=== PATIENT | male | born 1935 | race Asian ===

== ENCOUNTER 2023-06-11 16:31 | Inpatient (IN) | payer MEDICARE, OTHER ==
[~2023-06-11] VITALS: Ht 167.6 cm; Wt 75.7 kg
[2023-06-11 18:55] LABS: BASOPHILS % (AUTO) 0.6 % (0.0-2.0); EOSINOPHILS # (AUTO) 0.4 K/uL (0.0-0.7); EOSINOPHILS % (AUTO) 5.1 % (0.0-6.0); HEMATOCRIT 31 % (39-51); HEMOGLOBIN 10.3 g/dL (13.5-17.5); LYMPHOCYTES # (AUTO) 0.5 K/uL (0.8-4.8); LYMPHOCYTES % (AUTO) 6.3 % (20.0-44.0); MEAN CORPUSCULAR HEMOGLOBIN 34 PG (26.0-33.0); MEAN CORPUSCULAR HGB CONC 33 g/dl (31.0-36.0); MEAN CORPUSCULAR VOLUME 101 fL (80-96); MONOCYTES # (AUTO) 0.4 K/uL (0.1-1.30); MONOCYTES % (AUTO) 5.2 % (2.0-12.0); NEUTROPHILS # (AUTO) 6.3 K/uL (1.8-8.9); NEUTROPHILS % (AUTO) 82.8 % (43.0-81.0); PLATELET COUNT (AUTO) 73 K/uL (150-450); RED BLOOD CELL COUNT(AUTO) 3.04 MIL/uL (4.5-6.0); RED CELL DISTRIBUTION WIDTH 16.4 % (11.5-15.0); WHITE BLOOD COUNT (AUTO) 7.6 K/uL (4.3-11.0)
[2023-06-11 19:36] LABS: CALCIUM, SERUM 8.2 mg/dL (8.5-10.1); CARBON DIOXIDE 26 mmol/L (21-32); CHLORIDE 92 mmol/L (98-107); GLUCOSE 100 mg/dL (74-106); POTASSIUM 4.1 mmol/L (3.5-5.1); SODIUM SERUM 131 mmol/L (136-145); UREA NITROGEN, BLOOD 67 mg/dL (7-18)
[2023-06-11 19:37] LABS: EOSINOPHILS % (MANUAL) 2 % (0-4); LYMPHOCYTES % (MANUAL) 10 % (16-48); MONOCYTES % (MANUAL) 6 % (0-11.0); NEUTROPHILS % (MANUAL) 82 (42-76)
[2023-06-11 19:38] LABS: ANISOCYTOSIS 1+; PLATELET ESTIMATE DECREASED
[2023-06-11 19:42] LABS: ALANINE AMINOTRANSFERASE 48 U/L (12-78); ALBUMIN 2.4 g/dL (3.4-5.0); ALKALINE PHOSPHATASE 148 U/L (46-116); ASPARTATE AMINOTRANSFERASE 37 U/L (15-37); BILIRUBIN,DIRECT 1.2 mg/dL (0.0-0.2); BILIRUBIN,TOTAL 1.8 mg/dL (0.2-1.0); TOTAL PROTEIN, SERUM 6.7 g/dL (6.4-8.2)
[2023-06-11 19:49] LABS: CREATININE 8.9 mg/dL (0.6-1.3)
[2023-06-11 20:00] VITALS: BP 98/54; TEMP 98.1; O2SAT 98
[2023-06-11 20:30] VITALS: BP 98/54; TEMP 98.1; O2SAT 98
[2023-06-11] MEDS ORDERED: ONDANSETRON HCL/PF 4 MG/2 ML VIAL IVP PRN (21:00)
[2023-06-11] MEDS ORDERED: ACETAMINOPHEN 325 MG TABLET PO PRN (21:00)
[2023-06-11] MEDS ORDERED: Z GUARD REMEDY 4 OZ OINT TP PRN (21:00)
[2023-06-11] MEDS ORDERED: MAG HYDROX/AL HYDROX/SIMETH 30 ML UDC PO PRN (21:00)
[2023-06-11] MEDS ORDERED: MAGNESIUM HYDROXIDE 30 ML UDC PO PRN (21:00)
[2023-06-11] MEDS ORDERED: ZOLPIDEM TARTRATE 5 MG TABLET PO PRN (21:00)
[2023-06-11 22:05] LABS: INR 1.14 (0.91-1.10); PARTIAL THROMBOPLASTIN TIME 42.8 SEC (24.3-34.3)
[2023-06-11] MEDS ORDERED: PIOG30TA10 PO (23:07)
[2023-06-11] MEDS ORDERED: CARV12.52 PO (23:07)
[2023-06-11] MEDS ORDERED: LINA5TAB PO (23:07)
[2023-06-11] MEDS ORDERED: ATOR20TA PO (23:07)
[2023-06-11] MEDS ORDERED: CALC500T53 PO (23:07)
[2023-06-11] MEDS ORDERED: OMEP40CA21 PO (23:07)
[2023-06-11] MEDS ORDERED: APIX2.5T PO (23:07)
[2023-06-12 08:00] VITALS: BP_SYST 106; BP_SYST 98; BP_DIAS 61; BP_DIAS 64; TEMP 98.2; O2SAT 100; O2SAT 98
[2023-06-12] MEDS: PANTOPRAZOLE 40 MG VIAL IV SCH (09:08)
[2023-06-12 10:27] LABS: BASOPHILS % (AUTO) 0.3 % (0.0-2.0); EOSINOPHILS # (AUTO) 0.1 K/uL (0.0-0.7); EOSINOPHILS % (AUTO) 1.3 % (0.0-6.0); HEMATOCRIT 31 % (39-51); HEMOGLOBIN 10.3 g/dL (13.5-17.5); LYMPHOCYTES # (AUTO) 0.8 K/uL (0.8-4.8); LYMPHOCYTES % (AUTO) 14.4 % (20.0-44.0); MEAN CORPUSCULAR HEMOGLOBIN 34 PG (26.0-33.0); MEAN CORPUSCULAR HGB CONC 33 g/dl (31.0-36.0); MEAN CORPUSCULAR VOLUME 101 fL (80-96); MONOCYTES # (AUTO) 0.7 K/uL (0.1-1.30); MONOCYTES % (AUTO) 12.1 % (2.0-12.0); NEUTROPHILS # (AUTO) 4.1 K/uL (1.8-8.9); NEUTROPHILS % (AUTO) 71.9 % (43.0-81.0); PLATELET COUNT (AUTO) 66 K/uL (150-450); RED BLOOD CELL COUNT(AUTO) 3.07 MIL/uL (4.5-6.0); RED CELL DISTRIBUTION WIDTH 16.4 % (11.5-15.0); WHITE BLOOD COUNT (AUTO) 5.7 K/uL (4.3-11.0)
[2023-06-12 10:40] LABS: CALCIUM, SERUM 8.1 mg/dL (8.5-10.1); CARBON DIOXIDE 24 mmol/L (21-32); CHLORIDE 94 mmol/L (98-107); GLUCOSE 112 mg/dL (74-106); MAGNESIUM 2.2 mg/dL (1.8-2.4); PHOSPHORUS 3.7 mg/dL (2.5-4.9); POTASSIUM 4.2 mmol/L (3.5-5.1); SODIUM SERUM 130 mmol/L (136-145)
[2023-06-12 10:44] LABS: CHOLESTEROL 97 mg/dL (<200); HDL CHOLESTEROL 19 mg/dL (40-60); LDL 38 mg/dL (0-99); TRIGLYCERIDES 140 mg/dL (30-150)
[2023-06-12 10:45] LABS: CREATININE 9.5 mg/dL (0.6-1.3); UREA NITROGEN, BLOOD 80 mg/dL (7-18)
[2023-06-12] MEDS ORDERED: IOHEXOL 0 ML IV ONE (13:02)
[2023-06-12] MEDS ORDERED: ANESTHESIA TRAY IN PYXIS 1 EA TRAY MC ONE (13:02)
[2023-06-12] MEDS ORDERED: HEPARIN SODIUM, PORCINE 1,000 UNIT/ML VIAL ONE (13:03)
[2023-06-12] MEDS ORDERED: LIDOCAINE HCL/MPF 1% 30 ML VIAL IJ ONE (13:03)
[2023-06-12] MEDS ORDERED: VASOPRESSIN INJ 20 UNIT/ML VIAL ONE (13:13)
[2023-06-12] MEDS ORDERED: NOREPINEPHRINE 4 MG/4 ML AMPUL IV ONE (13:13)
[2023-06-12] MEDS ORDERED: FENTANYL PF 100MCG/2ML AMPUL ONE (13:13)
[2023-06-12] MEDS ORDERED: FAMOTIDINE/PF INJ 20 MG/2 ML VIAL IV ONE (13:14)
[2023-06-12] MEDS ORDERED: SEVOFLURANE 250 ML BOTTLE IH ONE (13:43)
[2023-06-12 15:04] LABS: ANISOCYTOSIS 1+; EOSINOPHILS % (MANUAL) 2 % (0-4); LYMPHOCYTES % (MANUAL) 16 % (16-48); MONOCYTES % (MANUAL) 8 % (0-11.0); NEUTROPHILS % (MANUAL) 74 (42-76); PLATELET ESTIMATE DECREASED
[2023-06-12] MEDS ORDERED: CELLULOSE,OXIDIZED 1 EACH EACH MC ONE (15:04)
[2023-06-12] MEDS ORDERED: ROPIVACAINE HCL 0.5% 5 MG/ML 30ML VIAL ONE (15:35)
[2023-06-12 20:00] VITALS: BP 82/41; TEMP 97.3; O2SAT 100
[2023-06-12] MEDS ORDERED: ALBUMIN 25% 25 GM in PREMIX 1 EA IV PRN ×2 (20:00→20:30)
[2023-06-12] MEDS: IV NS 0.9% 250 ML IV ONE ×2 (20:17→22:39)
[2023-06-12] MEDS: ALBUMIN 25% 25 GM in PREMIX 1 EA IV ONE (20:31)
[2023-06-12] MEDS ORDERED: IV NS 0.9% 1,000 ML BAG IV ONE (21:30)
[2023-06-13] VITALS (7 sets, daily range): BP systolic 78–100; BP diastolic 43–56; TEMP 97.3–98.4; O2SAT 95–100
[2023-06-13 06:43] LABS: BASOPHILS % (AUTO) 0.4 % (0.0-2.0); EOSINOPHILS # (AUTO) 0.1 K/uL (0.0-0.7); EOSINOPHILS % (AUTO) 1.7 % (0.0-6.0); HEMATOCRIT 25 % (39-51); HEMOGLOBIN 8.4 g/dL (13.5-17.5); LYMPHOCYTES # (AUTO) 0.7 K/uL (0.8-4.8); LYMPHOCYTES % (AUTO) 16.7 % (20.0-44.0); MEAN CORPUSCULAR HEMOGLOBIN 34 PG (26.0-33.0); MEAN CORPUSCULAR HGB CONC 33 g/dl (31.0-36.0); MEAN CORPUSCULAR VOLUME 101 fL (80-96); MONOCYTES # (AUTO) 0.5 K/uL (0.1-1.30); MONOCYTES % (AUTO) 12.9 % (2.0-12.0); NEUTROPHILS # (AUTO) 2.8 K/uL (1.8-8.9); NEUTROPHILS % (AUTO) 68.3 % (43.0-81.0); PLATELET COUNT (AUTO) 55 K/uL (150-450); RED BLOOD CELL COUNT(AUTO) 2.52 MIL/uL (4.5-6.0); RED CELL DISTRIBUTION WIDTH 16.4 % (11.5-15.0); WHITE BLOOD COUNT (AUTO) 4.1 K/uL (4.3-11.0)
[2023-06-13 07:20] LABS: ALANINE AMINOTRANSFERASE 23 U/L (12-78); ALBUMIN 2.2 g/dL (3.4-5.0); ALKALINE PHOSPHATASE 108 U/L (46-116); ASPARTATE AMINOTRANSFERASE 15 U/L (15-37); BILIRUBIN,TOTAL 1.3 mg/dL (0.2-1.0); CALCIUM, SERUM 7.7 mg/dL (8.5-10.1); CARBON DIOXIDE 25 mmol/L (21-32); CHLORIDE 95 mmol/L (98-107); GLUCOSE 108 mg/dL (74-106); MAGNESIUM 2.1 mg/dL (1.8-2.4); PHOSPHORUS 4.8 mg/dL (2.5-4.9); POTASSIUM 4.9 mmol/L (3.5-5.1); SODIUM SERUM 132 mmol/L (136-145); TOTAL PROTEIN, SERUM 5.8 g/dL (6.4-8.2)
[2023-06-13 07:58] LABS: CREATININE 10.1 mg/dL (0.6-1.3); UREA NITROGEN, BLOOD 81 mg/dL (7-18)
[2023-06-13 11:03] LABS: ANISOCYTOSIS 1+; BAND % (MANUAL) 3 % (0.0-5.0); BASOPHILS % (MANUAL) 0 % (0.0-2.0); EOSINOPHILS % (MANUAL) 2 % (0-4); LYMPHOCYTES % (MANUAL) 14 % (16-48); MONOCYTES % (MANUAL) 10 % (0-11.0); NEUTROPHILS % (MANUAL) 71 (42-76); OVALOCYTES 1+; PLATELET ESTIMATE DECREASED
[2023-06-13] MEDS ORDERED: ALBUMIN 25% 25 GM in PREMIX 1 EA IV PRN (13:00)
[2023-06-13] MEDS: MIDODRINE HCL (5MG) 5 MG TABLET PO PRN (13:09)
[2023-06-13] MEDS: ALBUMIN 25% 25 GM in PREMIX 1 EA IV SCH (19:02)
[2023-06-14] VITALS: BP 93/46; TEMP 97.5; O2SAT 98
[2023-06-14] MEDS: ALBUMIN 25% 25 GM in PREMIX 1 EA IV SCH (00:32)
[2023-06-14 04:00] VITALS: BP 94/72; TEMP 98.6; O2SAT 97
[2023-06-14 04:41] VITALS: O2SAT 100
[2023-06-14 07:00] VITALS: BP 108/50; TEMP 97.9; O2SAT 98
[2023-06-14] MEDS: PANTOPRAZOLE 40 MG/PACK PACK PO SCH (09:04)
== END 2023-06-14 12:52 | disposition home or self-care (01) | DRG 252 ==
LOC: ER 16:37 → TELE 19:23 → MED 21:34 → TELE 06-12 23:20
PROVIDERS: ADMIT Nurse Practitioner Acute Care
PROC: 05C80ZZ Extirpation of Matter from Left Axillary Vein, Open Approach (ICD-10-PCS; principal; 2023-06-12)
PROC: 05U Upper Veins, Supplement (ICD-10-PCS; 2023-06-12)
PROC: 5A1D70Z Performance of Urinary Filtration, Intermittent, Less than 6 Hours Per Day (ICD-10-PCS; 2023-06-14)
DX: T82.868A Thrombosis due to vascular prosthetic devices, implants and grafts, initial encounter (principal); N18.6 End stage renal disease; E87.1 Hypo-osmolality and hyponatremia; I12.0 Hypertensive chronic kidney disease with stage 5 chronic kidney disease or end stage renal disease; I48.91 Unspecified atrial fibrillation; E11.22 Type 2 diabetes mellitus with diabetic chronic kidney disease; Y71.2 Prosthetic and other implants, materials and accessory cardiovascular devices associated with adverse incidents; D53.9 Nutritional anemia, unspecified; D63.1 Anemia in chronic kidney disease; E78.5 Hyperlipidemia, unspecified; E87.8 Other disorders of electrolyte and fluid balance, not elsewhere classified; Z79.01 Long term (current) use of anticoagulants; Z99.2 Dependence on renal dialysis; N25.0 Renal osteodystrophy; Y83.8 Other surgical procedures as the cause of abnormal reaction of the patient, or of later complication, without mention of misadventure at the time of the procedure; Y92.531 Health care provider office as the place of occurrence of the external cause
CPT/HCPCS: 36415; 71045-TC; 80048-TC; 80053-TC; 80061-TC; 80076-TC; 83735-TC; 84100-TC; 84484-TC; 85025-TC; 85730-TC; 86850-TC; 90935-TC; A4216; A4223; A6253; C1757; C1781; C9113; G0378; J0690; J1644; J2405; J2704; J2795; J3010; J3490; J7030; J7050; P9047; Q9967

== ENCOUNTER 2023-07-13 14:01 | Inpatient (IN) | payer MEDICARE, OTHER ==
[~2023-07-13] VITALS: Ht 167.6 cm; Wt 75.7 kg
[~2023-07-13 14:01] MED LIST: APIX2.5T PO; ATOR20TA PO; CALC500T53 PO; CARV12.52 PO; LINA5TAB PO; OMEP40CA21 PO; PIOG30TA10 PO
[2023-07-13 15:58] LABS: BASOPHILS % (AUTO) 0.3 % (0.0-2.0); EOSINOPHILS # (AUTO) 0.2 K/uL (0.0-0.7); EOSINOPHILS % (AUTO) 1.3 % (0.0-6.0); HEMATOCRIT 23 % (39-51); HEMOGLOBIN 7.1 g/dL (13.5-17.5); LYMPHOCYTES # (AUTO) 1.7 K/uL (0.8-4.8); LYMPHOCYTES % (AUTO) 14.5 % (20.0-44.0); MEAN CORPUSCULAR HEMOGLOBIN 31 PG (26.0-33.0); MEAN CORPUSCULAR HGB CONC 31 g/dl (31.0-36.0); MEAN CORPUSCULAR VOLUME 99 fL (80-96); MONOCYTES # (AUTO) 0.9 K/uL (0.1-1.30); MONOCYTES % (AUTO) 8.1 % (2.0-12.0); NEUTROPHILS # (AUTO) 8.9 K/uL (1.8-8.9); NEUTROPHILS % (AUTO) 75.8 % (43.0-81.0); PLATELET COUNT (AUTO) 180 K/uL (150-450); RED CELL DISTRIBUTION WIDTH 17.8 % (11.5-15.0); WHITE BLOOD COUNT (AUTO) 11.7 K/uL (4.3-11.0)
[2023-07-13 16:00] VITALS: BP 110/57; TEMP 98.2; O2SAT 99
[2023-07-13 16:18] LABS: CALCIUM, SERUM 8.8 mg/dL (8.5-10.1); CARBON DIOXIDE 29 mmol/L (21-32); CHLORIDE 96 mmol/L (98-107); CREATININE 7.6 mg/dL (0.6-1.3); GLUCOSE 107 mg/dL (74-106); POTASSIUM 4.5 mmol/L (3.5-5.1); SODIUM SERUM 133 mmol/L (136-145); UREA NITROGEN, BLOOD 40 mg/dL (7-18)
[2023-07-13 16:35] LABS: INR 1.19 (0.91-1.10); PARTIAL THROMBOPLASTIN TIME 39.5 SEC (24.3-34.3); PROTHROMBIN TIME 12.5 SECS (9.2-11.1)
[2023-07-13] MEDS ORDERED: MAGNESIUM HYDROXIDE 30 ML UDC PO PRN (17:00)
[2023-07-13] MEDS ORDERED: ACETAMINOPHEN 325 MG TABLET PO PRN (17:00)
[2023-07-13] MEDS ORDERED: Z GUARD REMEDY 4 OZ OINT TP PRN (17:00)
[2023-07-13] MEDS ORDERED: MAG HYDROX/AL HYDROX/SIMETH 30 ML UDC PO PRN (17:00)
[2023-07-13] MEDS ORDERED: ONDANSETRON HCL/PF 4 MG/2 ML VIAL IVP PRN (17:00)
[2023-07-13] MEDS: CALCIUM CARBONATE (1250) 500 MG TABLET PO SCH (18:07)
[2023-07-13] MEDS: CARVEDILOL 12.5 MG TABLET PO SCH (18:08)
[2023-07-13 20:00] VITALS: BP 113/64; TEMP 97.7; O2SAT 100
[2023-07-13 20:17] VITALS: BP 113/64; TEMP 97.7; O2SAT 100
[2023-07-13 20:35] LABS: ANISOCYTOSIS 1+; LYMPHOCYTES % (MANUAL) 21 % (16-48); MONOCYTES % (MANUAL) 7 % (0-11.0); NEUTROPHILS % (MANUAL) 72 (42-76); PLATELET ESTIMATE ADEQUATE
[2023-07-13 20:36] LABS: OVALOCYTES 1+; ROULEAUX 1+
[2023-07-13] MEDS ORDERED: ANESTHESIA TRAY IN PYXIS 1 EA TRAY MC ONE (20:41)
[2023-07-13] MEDS ORDERED: IOHEXOL 0 ML IV ONE (20:43)
[2023-07-13] MEDS ORDERED: HEPARIN SODIUM, PORCINE 1,000 UNIT/ML VIAL ONE (20:43)
[2023-07-13] MEDS ORDERED: LIDOCAINE 1% INJ 50 ML MDV IJ ONE (20:44)
[2023-07-13] MEDS: ATORVASTATIN 10 MG TABLET PO SCH (21:34)
[2023-07-14 04:00] VITALS: BP 100/73; TEMP 98.4; O2SAT 95
[2023-07-14 07:10] LABS: BASOPHILS % (AUTO) 0.2 % (0.0-2.0); EOSINOPHILS # (AUTO) 0.1 K/uL (0.0-0.7); EOSINOPHILS % (AUTO) 1.2 % (0.0-6.0); HEMATOCRIT 24 % (39-51); LYMPHOCYTES # (AUTO) 1.2 K/uL (0.8-4.8); MEAN CORPUSCULAR HEMOGLOBIN 33 PG (26.0-33.0); MEAN CORPUSCULAR HGB CONC 34 g/dl (31.0-36.0); MEAN CORPUSCULAR VOLUME 96 fL (80-96); MONOCYTES # (AUTO) 0.7 K/uL (0.1-1.30); NEUTROPHILS # (AUTO) 7.3 K/uL (1.8-8.9); NEUTROPHILS % (AUTO) 77.6 % (43.0-81.0); PLATELET COUNT (AUTO) 158 K/uL (150-450); RED BLOOD CELL COUNT(AUTO) 2.46 MIL/uL (4.5-6.0); RED CELL DISTRIBUTION WIDTH 17.5 % (11.5-15.0); WHITE BLOOD COUNT (AUTO) 9.3 K/uL (4.3-11.0)
[2023-07-14 07:43] LABS: ALBUMIN 1.8 g/dL (3.4-5.0); ALKALINE PHOSPHATASE 67 U/L (46-116); ASPARTATE AMINOTRANSFERASE 13 U/L (15-37); BILIRUBIN,TOTAL 0.8 mg/dL (0.2-1.0); CALCIUM, SERUM 8.7 mg/dL (8.5-10.1); CARBON DIOXIDE 30 mmol/L (21-32); CHLORIDE 97 mmol/L (98-107); GLUCOSE 94 mg/dL (74-106); MAGNESIUM 1.7 mg/dL (1.8-2.4); PHOSPHORUS 2.8 mg/dL (2.5-4.9); POTASSIUM 4.4 mmol/L (3.5-5.1); SODIUM SERUM 134 mmol/L (136-145); TOTAL PROTEIN, SERUM 6.2 g/dL (6.4-8.2); UREA NITROGEN, BLOOD 45 mg/dL (7-18)
[2023-07-14 07:55] LABS: CREATININE 8.4 mg/dL (0.6-1.3)
[2023-07-14 08:00] VITALS: BP 102/52; TEMP 97.9; O2SAT 100
[2023-07-14 08:09] LABS: ALANINE AMINOTRANSFERASE < 6 U/L (12-78)
[2023-07-14] MEDS: PIOGLITAZONE HCL 15 MG TABLET PO SCH (08:11)
[2023-07-14] MEDS: LINAGLIPTIN 5 MG TABLET PO SCH (08:12)
[2023-07-14] MEDS: PANTOPRAZOLE 40 MG TABLET.DR PO SCH (08:12)
[2023-07-14] MEDS: APIXABAN 2.5 MG TABLET PO SCH (09:00)
[2023-07-14 12:07] VITALS: BP 97/71; TEMP 98.6; O2SAT 98
[2023-07-14 16:00] VITALS: BP 92/51; TEMP 98.4; O2SAT 98
[2023-07-14] MEDS: ALBUMIN 25% 25 GM in PREMIX 1 EA IV PRN (17:27)
[2023-07-14] MEDS: MIDODRINE HCL (5MG) 5 MG TABLET PO SCH (17:40)
[2023-07-14] MEDS: ANCEF 1 GM/50 ML D5W IV ONE (19:58)
[2023-07-14 20:00] VITALS: BP 111/43; TEMP 97.9; O2SAT 98
[2023-07-15] VITALS: BP 109/45; TEMP 97.9; O2SAT 98
[2023-07-15 04:00] VITALS: BP 103/51; TEMP 97.8; O2SAT 98
[2023-07-15 07:00] VITALS: BP 110/54; TEMP 97.4; O2SAT 99
[2023-07-15 11:14] LABS: BASOPHILS % (AUTO) 0.2 % (0.0-2.0); EOSINOPHILS # (AUTO) 0.1 K/uL (0.0-0.7); EOSINOPHILS % (AUTO) 0.7 % (0.0-6.0); HEMATOCRIT 24 % (39-51); HEMOGLOBIN 7.7 g/dL (13.5-17.5); LYMPHOCYTES # (AUTO) 1.1 K/uL (0.8-4.8); LYMPHOCYTES % (AUTO) 10.6 % (20.0-44.0); MEAN CORPUSCULAR HEMOGLOBIN 31 PG (26.0-33.0); MEAN CORPUSCULAR HGB CONC 32 g/dl (31.0-36.0); MEAN CORPUSCULAR VOLUME 98 fL (80-96); MONOCYTES % (AUTO) 9.5 % (2.0-12.0); PLATELET COUNT (AUTO) 142 K/uL (150-450); RED BLOOD CELL COUNT(AUTO) 2.46 MIL/uL (4.5-6.0); RED CELL DISTRIBUTION WIDTH 17.8 % (11.5-15.0); WHITE BLOOD COUNT (AUTO) 10.1 K/uL (4.3-11.0)
[2023-07-15 11:38] LABS: IRON, SERUM 22 ug/dl (50-175); TOTAL IRON BINDING CAPACITY 101 ug/dl (250-450)
[2023-07-15 12:00] LABS: ALANINE AMINOTRANSFERASE < 6 U/L (12-78); ALBUMIN 1.8 g/dL (3.4-5.0); ALKALINE PHOSPHATASE 53 U/L (46-116); ASPARTATE AMINOTRANSFERASE 12 U/L (15-37); BILIRUBIN,TOTAL 0.7 mg/dL (0.2-1.0); CALCIUM, SERUM 8.1 mg/dL (8.5-10.1); CARBON DIOXIDE 27 mmol/L (21-32); CHLORIDE 105 mmol/L (98-107); CREATININE 5.8 mg/dL (0.6-1.3); GLUCOSE 129 mg/dL (74-106); MAGNESIUM 1.8 mg/dL (1.8-2.4); PHOSPHORUS 3.5 mg/dL (2.5-4.9); POTASSIUM 4.1 mmol/L (3.5-5.1); SODIUM SERUM 139 mmol/L (136-145); TOTAL PROTEIN, SERUM 5.7 g/dL (6.4-8.2); UREA NITROGEN, BLOOD 28 mg/dL (7-18)
[2023-07-15 12:16] LABS: FERRITIN 1706 ng/mL (8-388)
[2023-07-15 13:10] VITALS: BP 98/48
== END 2023-07-15 14:19 | disposition home or self-care (01) | DRG 314 ==
LOC: ER 14:04 → MED 15:55 → TELE 21:02
PROVIDERS: ADMIT Internal Medicine; ATTEND Nurse Practitioner Acute Care
PROC: 0JH63XZ Insertion of Tunneled Vascular Access Device into Chest Subcutaneous Tissue and Fascia, Percutaneous Approach (ICD-10-PCS; principal; 2023-07-14)
PROC: 02HV33Z Insertion of Infusion Device into Superior Vena Cava, Percutaneous Approach (ICD-10-PCS; 2023-07-14)
PROC: B518YZA Fluoroscopy of Superior Vena Cava using Other Contrast, Guidance (ICD-10-PCS; 2023-07-14)
PROC: 5A1D70Z Performance of Urinary Filtration, Intermittent, Less than 6 Hours Per Day (ICD-10-PCS; 2023-07-14)
DX: T82.510A Breakdown (mechanical) of surgically created arteriovenous fistula, initial encounter (principal); N18.6 End stage renal disease; I12.0 Hypertensive chronic kidney disease with stage 5 chronic kidney disease or end stage renal disease; D68.69 Other thrombophilia; Y71.2 Prosthetic and other implants, materials and accessory cardiovascular devices associated with adverse incidents; D63.1 Anemia in chronic kidney disease; E11.22 Type 2 diabetes mellitus with diabetic chronic kidney disease; E78.5 Hyperlipidemia, unspecified; I48.91 Unspecified atrial fibrillation; Z79.01 Long term (current) use of anticoagulants; Z99.2 Dependence on renal dialysis; Y84.8 Other medical procedures as the cause of abnormal reaction of the patient, or of later complication, without mention of misadventure at the time of the procedure; Y92.009 Unspecified place in unspecified non-institutional (private) residence as the place of occurrence of the external cause; N25.0 Renal osteodystrophy
CPT/HCPCS: 36415; 71045-TC; 80048-TC; 80053-TC; 82607-TC; 82728-TC; 83540-TC; 83735-TC; 83970; 84100-TC; 85025-TC; 85730-TC; 86706; 86850-TC; 87340; A4216; A4223; C1750; C1757; C1769; C1894; G0378; J0690; J1644; J2405; J2704; J2765; J3490; J7050; J7060; P9047; Q9967